=== PATIENT | male | born 1950 | race Hispanic/Latino ===

== ENCOUNTER → 2020-01-05 | Outpatient (CLI) | payer BC, MEDICARE | END | disposition home or self-care (01) | LOC: SHCH 09:01 | PROVIDERS: ATTEND Internal Medicine Cardiovascular Disease | DX: I10 Essential (primary) hypertension (principal); I25.10 Atherosclerotic heart disease of native coronary artery without angina pectoris | CPT/HCPCS: 93306; 93356 ==

== ENCOUNTER → 2020-10-23 | Outpatient (CLI) | payer OTHER | END | disposition home or self-care (01) | LOC: SHCH 10:09 | PROVIDERS: ATTEND Internal Medicine Cardiovascular Disease | DX: I08.2 Rheumatic disorders of both aortic and tricuspid valves (principal); I25.5 Ischemic cardiomyopathy | CPT/HCPCS: 93306; 93356 ==

== ENCOUNTER → 2021-03-14 | Outpatient (CLI) | payer OTHER | END | disposition home or self-care (01) | LOC: RAH 14:32 | PROVIDERS: ATTEND Family Medicine | DX: N50.811 Right testicular pain (principal); N50.3 Cyst of epididymis | CPT/HCPCS: 76870 ==

== ENCOUNTER → 2022-02-06 | Outpatient (CLI) | payer OTHER | END | disposition home or self-care (01) | LOC: SHCH 08:06 | PROVIDERS: ATTEND Internal Medicine Cardiovascular Disease | DX: I08.2 Rheumatic disorders of both aortic and tricuspid valves (principal); I11.9 Hypertensive heart disease without heart failure | CPT/HCPCS: 93306 ==

== ENCOUNTER 2022-04-15 06:42 | Day surgery (SDC) | payer OTHER ==
[2022-04-11 13:04] LABS: BASOPHILS % (AUTO) 0.6 % (0.0-5.0); HEMATOCRIT 42.5 % (42-54); LYMPHOCYTES % (AUTO) 28.9 % (21.0-51.0); MEAN CORPUSCULAR HEMOGLOBIN 31.3 pg (27.0-33.0); MEAN CORPUSCULAR HGB CONC 32.7 g/dL (32.0-36.0); MEAN CORPUSCULAR VOLUME 95.7 fL (79-99); MONOCYTES % (AUTO) 11.5 % (3.0-13.0); NEUTROPHILS % (AUTO) 53.4 % (40.0-77.0); PLATELET COUNT (AUTO) 223 K/uL (130-400); RED BLOOD CELL COUNT(AUTO) 4.44 MIL/uL (4.50-6.20); RED CELL DISTRIBUTION WIDTH 13.8 % (11.0-15.5); WHITE BLOOD COUNT (AUTO) 8.4 K/uL (4.8-10.8)
[2022-04-11 13:12] LABS: CREATININE 1.2 mg/dL (0.5-1.5); POTASSIUM 4.6 mmol/L (3.5-5.1)
[2022-04-11 13:14] LABS: INR 0.95 (0.85-1.15); PROTHROMBIN TIME 10.4 SEC (9.6-11.6)
[2022-04-11 13:16] LABS: PARTIAL THROMBOPLASTIN TIME 28.1 SEC (26.3-35.5)
[2022-04-12 09:18] VITALS: BP 136/63
[2022-04-15] VITALS (12 sets, daily range): BP systolic 112–134; BP diastolic 56–73
[~2022-04-15] VITALS: Ht 162.6 cm; Wt 59.1 kg
[~2022-04-15 06:42] MED LIST: AEC81 PO; ATOR40TA69 PO; LISI5TAB21 PO; METO25TA6 PO
[2022-04-15] MEDS ORDERED: 0.9%NACL 1000ML 1,000 ML IV SCH (08:00)
[2022-04-15] MEDS ORDERED: CEFAZOLIN SODIUM 1 GM VIAL ONE (09:36)
[2022-04-15] MEDS ORDERED: LIDOCAINE HCL 1% 20 ML VIAL ONE (09:36)
[2022-04-15] MEDS ORDERED: MIDAZOLAM HCL 1 MG/ML 2ML VIAL ONE ×3 (09:37→09:56)
[2022-04-15] MEDS ORDERED: BUPIVACAINE/PF 0.25% 30ML VIAL IJ ONE (09:37)
[2022-04-15] MEDS ORDERED: MEPERIDINE-PF 25 MG/ML SYG ONE ×3 (09:37→09:56)
[2022-04-15] MEDS ORDERED: BACITRACIN 1 EACH PACKET TP ONE (09:37)
[2022-04-15] MEDS ORDERED: OCTYL 2-CYANOACRYLATE 1 EACH TP ONE (10:35)
[2022-04-15] MEDS ORDERED: ACETAMINOPHEN 325 MG TAB PO PRN ×2 (11:00)
[2022-04-15] MEDS ORDERED: CEFAZOLIN SODIUM 1 GM VIAL IVP ONE (16:00)
== END 2022-04-15 16:30 | disposition home or self-care (01) ==
LOC: DAH 06:42
PROVIDERS: ATTEND Internal Medicine Cardiovascular Disease
DX: I25.5 Ischemic cardiomyopathy (principal); I11.0 Hypertensive heart disease with heart failure; I50.42 Chronic combined systolic (congestive) and diastolic (congestive) heart failure; I25.2 Old myocardial infarction; E78.5 Hyperlipidemia, unspecified; Z79.01 Long term (current) use of anticoagulants; Z79.82 Long term (current) use of aspirin; Z79.899 Other long term (current) drug therapy; Z98.890 Other specified postprocedural states; Z82.49 Family history of ischemic heart disease and other diseases of the circulatory system
CPT/HCPCS: 80048; 85025; 85610; 85730; 36415; 93005; 33249; 71045; C1722; C1895; C1894; J0690 ×2; J7030; J3490; J2250 ×2; J2175 ×2; A4215; A4222; A4221; A4663; A4216; A4606; A4223 ×3; 99156; 99157

== ENCOUNTER → 2024-06-04 | Outpatient (CLI) | payer OTHER | END | disposition home or self-care (01) | LOC: SHCH 08:38 | PROVIDERS: ATTEND Internal Medicine Cardiovascular Disease | DX: I25.10 Atherosclerotic heart disease of native coronary artery without angina pectoris (principal) | CPT/HCPCS: 93306 ==

== ENCOUNTER → 2024-06-08 | Outpatient (CLI) | payer OTHER ==
[2024-06-08] MEDS: REGADENOSON 0.4 MG/5 ML PF SYG IVP ONE (10:52)
== END | disposition home or self-care (01) ==
LOC: SHCH 07:36
PROVIDERS: ATTEND Internal Medicine Cardiovascular Disease
DX: I25.10 Atherosclerotic heart disease of native coronary artery without angina pectoris (principal)
CPT/HCPCS: 78452; 93017; J2785; A9500 ×2

== ENCOUNTER 2024-07-09 07:08 | Day surgery (SDC) | payer OTHER ==
[2024-07-07 11:53] LABS: BASOPHILS # (AUTO) 0.06 K/uL (0.00-0.20); BASOPHILS % (AUTO) 0.7 % (0.0-5.0); EOSINOPHILS # (AUTO) 0.22 K/uL (0.00-0.70); EOSINOPHILS % (AUTO) 2.7 % (0.0-8.0); HEMATOCRIT 44.6 % (42-54); IMMATURE GRANULOCYTE ABSOLUTE 0.06 K/uL (0-1); LYMPHOCYTES # (AUTO) 2.6 K/uL (1.0-4.8); MEAN CORPUSCULAR HEMOGLOBIN 31.5 pg (27.0-33.0); MEAN CORPUSCULAR HGB CONC 32.5 g/dL (32.0-36.0); MONOCYTES # (AUTO) 0.8 K/uL (0.1-1.0); MONOCYTES % (AUTO) 9.5 % (3.0-13.0); NEUTROPHILS # (AUTO) 4.6 K/uL (1.8-7.7); NEUTROPHILS % (AUTO) 55.4 % (40.0-77.0); PLATELET COUNT (AUTO) 200 K/uL (130-400); RED CELL DISTRIBUTION WIDTH 14.5 % (11.0-15.5); WHITE BLOOD COUNT (AUTO) 8.3 K/uL (4.8-10.8)
[2024-07-07 12:06] LABS: CREATININE 1.1 mg/dL (0.5-1.3); INR 1.01 (0.85-1.15); PROTHROMBIN TIME 10.9 SEC (9.6-11.6)
[2024-07-07 12:07] LABS: PARTIAL THROMBOPLASTIN TIME 28.2 SEC (26.3-35.5)
[2024-07-07 12:08] VITALS: BP 129/48; PULSE 60; RESP 14; TEMP 98.1
--- NOTE | 2024-07-07 12:14 | EKG ---
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
[2024-07-07 12:46] LABS: APPEARANCE,URINE CLEAR (CLEAR); BILIRUBIN,URINE NEGATIVE (NEGATIVE); COLOR,URINE YELLOW (YELLOW); GLUCOSE, URINE (UA) NEGATIVE (NEGATIVE); KETONES,URINE NEGATIVE (NEGATIVE); LEUKOCYTE ESTERASE ,URINE NEGATIVE Leu/uL (NEGATIVE); NITRATE,URINE NEGATIVE (NEGATIVE); PH,URINE 5.5 (5.0-8.0); PROTEIN,URINE NEGATIVE (NEGATIVE); UROBILINOGEN,URINE 0.2 mg/dL (0.2-1.0)
[2024-07-07 12:57] LABS: B-TYPE NATRIURETIC PEPTIDE 194 pg/mL (0-100)
[2024-07-07 12:58] LABS: ADD UA MICROSCOPIC YES
[2024-07-07 13:24] LABS: WBC,URINE 0-1 /HPF (0-1)
--- NOTE | 2024-07-07 15:36 | HMCIMG ---
CHEST 1VW HISTORY: Preop COMPARISON: 04/15/2022 FINDINGS: A frontal projection of the chest was obtained. Prominent interstitial markings are seen with possible superimposed infiltrates. Poststernotomy changes are seen. The heart is enlarged. Degenerative changes of the thoracolumbar spine are present. Pacemaker is seen entering from the left. No evidence of aortic calcification is seen. IMPRESSION: 1. Prominent interstitial markings are seen with possible superimposed infiltrates.
[2024-07-09] VITALS (12 sets, daily range): BP systolic 99–118; BP diastolic 50–62; PULSE 63–75; RESP 10–18; TEMP 97.1–97.8
[~2024-07-09] VITALS: Ht 162.6 cm; Wt 58.6 kg
[~2024-07-09 07:08] MED LIST changes: +ATOR20TA65 PO; -ATOR40TA69 PO
[2024-07-09] MEDS: 0.9%NACL 1000ML 1,000 ML IV ONE (07:38)
[2024-07-09] MEDS ORDERED: IOHEXOL 350 MG/ML 100ML INFUS..BTL IV ONE ×2 (09:12→10:47)
[2024-07-09] MEDS ORDERED: SODIUM BICARB 50MEQ 50ML VIAL 50 ML ONE (09:12)
[2024-07-09] MEDS ORDERED: LIDOCAINE HCL 400MG/20ML VIAL ONE (09:12)
[2024-07-09] MEDS ORDERED: HEParin-NS 1,000 UNIT/500 ML 1,000 ML IV ONE (09:13)
[2024-07-09] MEDS ORDERED: NITROGLYCERIN 50MG VIAL ONE (09:13)
[2024-07-09] MEDS ORDERED: MEPERIDINE-PF 25 MG/ML SYG ONE ×3 (09:38→11:08)
[2024-07-09] MEDS ORDERED: MIDAZOLAM HCL 1 MG/ML 2ML VIAL ONE ×3 (09:39→11:08)
[2024-07-09] MEDS ORDERED: HEParin 10,000 UNIT/10ML (1,000 UNIT/ML) VIAL ONE (10:04)
[2024-07-09] MEDS ORDERED: metoPROLOL tartRATE 1 MG/ML 5ML VIAL IV ONE (10:48)
[2024-07-09] MEDS ORDERED: HEParin-NS 1,000 UNIT/500 ML 500 ML IV ONE (10:50)
[2024-07-09] MEDS ORDERED: cloPIDOgrel 300MG TAB ONE (11:23)
[2024-07-09] MEDS: 0.9%NACL 1000ML 1,000 ML IV SCH (12:20)
--- NOTE | 2024-07-09 12:42 | CCATH ---
PROCEDURE PERFORMED: 1. Left heart catheterization. 2. Selective diagnostic left coronary angiogram. 3. Subselective diagnostic right coronary angiogram. 4. Multiple saphenous vein graft angiogram. 5. HURTADO angiogram. 6. Balloon angioplasty and stent placement in the left main and the circumflex. 7. Stent placement in the circumflex. 8. Balloon angioplasty and stent placement in the first diagonal at the anastomosis of the saphenous vein graft. 9. Conscious sedation was administered. TOTAL CONTRAST: Approximately 120 mL. COMPLICATIONS: None. INDICATIONS: 1. Recurrent angina with destabilization. 2. Abnormal Lexiscan Cardiolite, high risk study. 3. History of coronary artery disease with remote bypass graft surgery x3. DESCRIPTION OF PROCEDURE: The patient was taken to the cardiac catheterization lab after the appropriate operative consents were signed. He was prepped and draped in the usual fashion. After conscious sedation was administered, the right common femoral artery region was infiltrated with 2% Xylocaine without epinephrine. A 6-Ugandan sheath was advanced in retrograde fashion by modified Seldinger technique. Attempts at advancing the J wire met some resistance in the mid to distal abdominal aorta, similar to the prior procedure in 2019. At this point, we utilized a Glidewire and we were able to advance it with no difficulty into the ascending aorta. We were then able to advance a 6 x 45 sheath to avoid the vascular problems in the distal abdominal aorta and calcified iliac. At this point, we utilized an FL3.5, which was selectively engaged in the ostium of the left main. Catheter dampening was noted. Left main was heavily calcified as was the proximal circumflex and the LAD. The left main had an ostial 90% lesion that extended all the way to the distal circumflex and involved the takeoff of the circumflex and the proximal portion of the circumflex. LAD was a moderately sized vessel that had a calcified 80% lesion in the proximal portion before first diagonal. The first diagonal had 80-90% stenotic lesions and had competitive flow from a vein graft. The LAD had a 95% lesion just after the first diagonal; however, there was competitive flow from mammary artery. Circumflex was a large, dominant vessel that gave rise to the OM1, small OM2, and PLVB and PDA. The OM1 was 100% occluded not visualized by [place] injection. The ongoing circumflex was normal after the proximal portion, which had calcified 80% stenotic lesion, which extended to the mid segment of the vessel. Multiple attempts were made to engage in the right coronary artery, however, the ostium was heavily calcified and the patient had subselective imaging that showed a nondominant small vessel and I elected not to utilize any additional contrast to visualize it since the patient had what appears to be a left dominant system. At this point, the catheter was removed and FR4 6-Ugandan catheter was placed in the left ventricular cavity. Left ventricular end-diastolic pressure measurement was obtained. Ventriculography was deferred to conserve contrast. The patient had an EF of 40% by noninvasive echocardiographic studies. The catheter was pulled back and this revealed no evidence of aortic stenosis. It was engaged in the saphenous vein graft that was apparently a Y graft with one limb supplying the first diagonal and 1 limb supplying the first obtuse marginal. The bypass graft was widely patent and both limbs were patent, supplying moderately sized diagonal and OM. The anastomotic segment of the limb of the diagonal had an 80% stenotic lesion. At this point, an IMT catheter was selected and engaged in the left internal mammary artery. This was imaged in multiplane. The mammary artery was patent, supplying a moderately sized LAD. The preanastomotic segment had a 30% distal tapering of the left internal mammary artery, however, the flow was brisk. The apical most portion of the LAD had an 80% lesion. Given the patient's symptoms and his high risk Lexiscan Cardiolite, a percutaneous intervention was planned. At this point, we utilized an FL4 6-Ugandan guide, which was engaged in the ostium of the left main. A 0.014 wire was advanced into the left circumflex distally after full heparinization. We utilized balloon angioplasty with a 3.5 NC balloon in the proximal and ostial circumflex and proximal and ostial left main. This was followed by placement of an Forman Tucker 3.5 x 34 mm, which was placed in the left main and extended into the proximal circumflex. This was postdilated with a 3.5 x 27 NC balloon to 18 atmospheres at 3.57 mm size with good final angiographic results. Imaging revealed a patent stent, however, the distal segment of the stent has what appears to be a candy wrapper lesion and I elected to advance a second stent. We utilized an Scot 3.0 x 22, which was inflated to nominal pressures overlapping the previously deployed stent with good angiographic results. At this point, we utilized a left coronary bypass graft guide catheter, which was selectively engaged in the Y graft to the OM and diagonal. A 0.014 wire was advanced into the distal diagonal circulation. We then utilized a 2.25 Scot Tucker stent x 12 mm long that was placed in the area of the anastomosis of the saphenous vein graft to the diagonal and the diagonal. This was postdilated with a 2.5 mm balloon to 14 atmospheres at 4.56 mm with good final angiographic results. 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 Perclose was utilized with good hemostasis. FINAL IMPRESSION: 1. Severe peters[place] coronary artery disease. 2. Recurrent angina with destabilization. 3. Abnormal, high risk scan. 4. EF of 40% by echocardiography. 5. No aortic stenosis. 6. Patent HURTADO to the LAD and Y graft to the diagonal and OM. 7. Successful balloon angioplasty and stent placement of the left main and proximal circumflex with a 3.5 x 34 mm Forman Tucker stent, postdilated with a 3.5 mm NC balloon to 18 atmospheres at 3.57 mm size with good angiographic results. 8. Successful balloon angioplasty of the mid circumflex overlapping the previously deployed stent with a 3.0 x 22 Forman to nominal pressures with good angiographic results. 9. Successful balloon angioplasty and stent placement in the anastomosis of the saphenous vein graft, Y limb to the diagonal and the [place] diagonal with a 2.25 x 12 Forman Tucker postdilated with 2.5 NC balloon to 14 atmospheres at 2.56 mm size with good final angiographic results. PLAN: Continue medical management. TID: [id number] RECEIPT: [id number]
== END 2024-07-09 18:09 | disposition home or self-care (01) ==
LOC: DAH 07:08
PROVIDERS: ATTEND Internal Medicine Cardiovascular Disease
DX: I25.708 Atherosclerosis of coronary artery bypass graft(s), unspecified, with other forms of angina pectoris (principal); I25.118 Atherosclerotic heart disease of native coronary artery with other forms of angina pectoris; R06.09 Other forms of dyspnea; I10 Essential (primary) hypertension; Z95.5 Presence of coronary angioplasty implant and graft; E78.5 Hyperlipidemia, unspecified; I25.2 Old myocardial infarction; Z79.01 Long term (current) use of anticoagulants; Z79.899 Other long term (current) drug therapy
CPT/HCPCS: 80048; 83880; 85025; 85610; 85730; 81001; 36415; 71045; 93005; 93459; C9600 ×2; C1769 ×3; C1887 ×3; C1894; C1725 ×3; C1874 ×3; C1760; C1893; Q9965 ×3; J3490 ×4; J7030; J1644 ×3; J2250 ×3; J2175 ×3; Q9967 ×2; A4215; A4222; A4221; A4663; A4216; A4606; C9604; A4223 ×3; 96360; 96361; 99156; 99157